=== PATIENT | male | born 1985 | race African-American/Black ===

== ENCOUNTER 2017-10-15 20:18 | Emergency (ER) | payer OTHER ==
[~2017-10-15] VITALS: Ht 180.3 cm; Wt 102.3 kg
[2017-10-15] MEDS ORDERED: AUGMENTIN875 MG PO (21:41)
[2017-10-15 21:48] VITALS: BP 160/96
== END 2017-10-15 21:48 ==
LOC: EME 20:18
PROC: 0CQ1XZZ Repair Lower Lip, External Approach (ICD-10-PCS; principal; 2017-10-15)
PROC: 3E0234Z Introduction of Serum, Toxoid and Vaccine into Muscle, Percutaneous Approach (ICD-10-PCS; 2017-10-15)
DX: S01.511A Laceration without foreign body of lip, initial encounter (principal); W06.XXXA Fall from bed, initial encounter; Y92.143 Cell of prison as the place of occurrence of the external cause; Z23 Encounter for immunization; Z87.891 Personal history of nicotine dependence
CPT/HCPCS: 99281; 99284